=== PATIENT | female | born 1990 | race American Indian/Alaskan Native ===

== ENCOUNTER 2017-09-05 13:29 | Emergency (ER) | payer SELFPAY ==
[2017-09-05 14:00] VITALS: BP 111/61
== END 2017-09-05 18:49 | disposition left against medical advice (07) ==
LOC: ED 13:29
DX: R10.9 Unspecified abdominal pain (principal); Z53.21 Procedure and treatment not carried out due to patient leaving prior to being seen by health care provider

== ENCOUNTER 2017-11-26 22:46 | Outpatient (CLI) | payer BC, OTHER ==
[2017-11-26] MEDS ORDERED: LACTATED RINGERS 500 ML IV ONE (23:19)
[2017-11-26 23:34] VITALS: BP 117/68
--- NOTE | 2017-11-27 01:05 | Ultrasound Report ---
FINAL REPORT EXAM: US OB BPP WO NON-STRESS HISTORY: to do bpp TECHNIQUE: A limited OB sonogram was performed for evaluation of the biophysical profile. FINDINGS: For breathing movements, a score of 2 out of 2 was obtained. For movements, a score of 2 out of 2 was obtained. For posture in tone, a score of 2 out of 2 was obtained. For qualitative amniotic fluid volume, a score of 2 out of 2 was obtained. The total score is 8 out of 8. The heart rate is 141 BPM. IMPRESSION: Biophysical profile score of 8 out of 8. The heart rate is 141 BPM.
--- NOTE | 2017-11-27 17:46 | Event Note ---
Date: 11/26/17 26 year old female presents to L&D triage at 31 weeks, 1 day gestation complaining of boil on left labia majora. Patient states the boil has been present for several weeks and is very sore but is not currently draining anything. Patient denies contractions. She denies leaking of fluid or vaginal bleeding. She reports active movement. NST reactive today. No contractions noted. SVE : closed. Boil noted on left labia majora; not draining and is not well localized. Patient is afebrile and her vital signs are stable. Patient cleared from OB standpoint (not in labor and reassuring EFM) and sent to ED to address/treat the boil. Advised pt. to follow up with her primary OB this week. Pt. voiced understanding.
== END 2017-11-27 03:08 | disposition home or self-care (01) ==
LOC: TRG 22:46
PROVIDERS: ATTEND Obstetrics & Gynecology
DX: O47.03 False labor before 37 completed weeks of gestation, third trimester (principal); Z3A.31 31 weeks gestation of pregnancy
CPT/HCPCS: 59025; 76819

== ENCOUNTER 2017-11-27 01:22 | Emergency (ER) | payer BC, OTHER ==
[2017-11-27 01:36] VITALS: BP 102/61
== END 2017-11-27 03:00 | disposition left against medical advice (07) ==
LOC: ED 01:22
DX: L02.426 Furuncle of left lower limb (principal); Z53.21 Procedure and treatment not carried out due to patient leaving prior to being seen by health care provider